=== PATIENT | female | born 1995 | race Caucasian/White ===

== ENCOUNTER → 2016-07-10 | Outpatient (CLI) | payer BC, OTHER ==
--- NOTE | 2016-07-10 10:33 | MM ---
Reason for exam: clinical finding. History: Family history of breast cancer in paternal grandmother. Physical Findings: Nurse Summary: 1cm nodule inthe left breast at 3:30 (nurse sam). MG Diagnostic Mammo w CAD ALIRIO Bilateral CC and MLO view(s) were taken. The breast tissue is extremely dense which could obscure a lesion on mammography. Smoothly marginated mass left breast 3 o'clock. These results were verbally communicated with the patient and result sheet given to the patient on 07/10/16. ASSESSMENT: Incomplete: need additional imaging evaluation, BI-RAD 0 RECOMMENDATION: Ultrasound of the left breast. Manage patient on a clinical basis.
--- NOTE | 2016-07-10 10:35 | USB ---
Reason for exam: additional evaluation requested from abnormal screening. History: Family history of breast cancer in paternal grandmother. US Breast LT Left breast ultrasound including all four quadrants, the retroareolar region and axilla demonstrates a 2.2 x 2.8 x 0.8cm oval, macrolobulated, hypoechoic, vascular lesion at 3 o'clock. Probable fibroadenoma for which a 6 month follow up is recommended. These results were verbally communicated with the patient and result sheet given to the patient on 07/10/16. ASSESSMENT: Probably benign, BI-RAD 3 RECOMMENDATION: Ultrasound of the left breast in 6 months. Manage patient on a clinical basis.
== END | disposition home or self-care (01) ==
LOC: RADMAMWWP 07:51
PROVIDERS: ATTEND Family Medicine
DX: N63 Unspecified lump in breast (principal); R92.8 Other abnormal and inconclusive findings on diagnostic imaging of breast
CPT/HCPCS: 76641; G0204

== ENCOUNTER 2019-06-23 13:30 | Emergency (ER) | payer BC ==
[2019-06-23 14:00] VITALS: RESP 19
--- NOTE | 2019-06-23 14:36 | ED ---
Upper Extremity HPI - General Chief Complaint: Extremity Injury, Upper Stated Complaint: left arm injury Time Seen by Provider: 06/23/19 13:58 Source: patient Mode of arrival: ambulatory Limitations: no limitations - History of Present Illness Initial Comments: 23yo female with no significant PMH presenting to the ER today for cc of left arm painx 1 day. Patient states she tripped falling down approximately 6 steps yesterday. She denies injury to the head, neck, upper back, she states she is slightly sore in the lumbar region muscle but states "she knows nothing is wrong there". Denies loss of bowel bladder control, les weakness, radiation down leg or loss of sensation of LE. Patient denies LOC, blood thinners. States she fell because she tripped and caught her self mostly with her left forearm, she states it is bruised and she has pain with movemetn of the forearm or palpating the are. Patient concerned for possible break in the left forearm and states that is why she presented. Denies abdominal or chest trauma, trauma to the elbow, wrists, hands or shoulder, denies lower extremity pain. No other complaints appears well on arrival no acute distress. States she does not believe she is , - Related Data Allergies Allergy/AdvReac Type Severity Reaction Status Date / Time No Known Allergies Allergy Verified 06/23/19 14:00 Review of Systems ROS Statement: Those systems with pertinent positive or pertinent negative responses have been documented in the HPI. ROS Other: All systems not noted in ROS Statement are negative. Past Medical History Past Medical History: No Reported History History of Any Multi-Drug Resistant Organisms: None Reported Past Surgical History: No Surgical Hx Reported Past Psychological History: No Psychological Hx Reported Smoking Status: Current every day smoker Past Alcohol Use History: None Reported Past Drug Use History: None Reported General Exam - General Exam Comments Initial Comments: General: The patient is awake and alert, in no distress, and does not appear acutely ill. Eye: +3 mm pupils are equal, round and reactive to light, extra-ocular movements are intact. No nystagmus. There is normal conjunctiva bilaterally. No signs of icterus. Ears, nose, mouth and throat: There are moist mucous membranes and no oral lesions. Cardiovascular: There is a regular rate and rhythm. No murmur, rub or gallop is appreciated. Respiratory: Lungs are clear to auscultation, respirations are non-labored, breath sounds are equal. No wheezes, stridor, rales, or rhonchi. Gastrointestinal: Soft, non-distended, non-tender abdomen without masses or organomegaly noted. There is no rebound or guarding present. Musculoskeletal: Normal inspection of the cervical thoracic and lumbar spine. Pain to palpation of the lumbar paravertebral muscles no pain to palpation of the cervical thoracic of lumbar spine midline. Normal ROM at the wrist and elbow, pronation/supination but patient complaints of pain in mid to proximal forearm with these movement. [id number] linear bruising left forearm, just proximal to midline-ventral aspect. Strength 5/5. Sensation intact. Radial pulses equal bilaterally 2+. Patient able to make the okay fingers crossed thumbs-up and doesn't pose a small digit and thumb no wrist drop. Neurological: A&O x 3. CN II-XII intact grossly, There are no obvious motor or sensory deficits. Coordination appears grossly intact. Speech is normal. Skin: Skin is warm and dry and no rashes or lesions are noted. Psychiatric: Cooperative, appropriate mood & affect, normal judgment. Limitations: no limitations Course Vital Signs 06/23/19 06/23/19 13:57 15:05 Temperature 98.1 F 98.4 F Pulse Rate 74 78 Respiratory 19 19 Rate Blood Pressure 128/58 120/79 O2 Sat by Pulse 98 98 Oximetry Medical Decision Making - Medical Decision Making XR (-). XR personally reviewed. Patient neurovascularly intact appears well small ecchymosis over the forearm. Return premises discussed as well as PCP follow-up patient agreeable to plan discharge with RICE instruction. Discussed case wt Dr. Echavarria. Disposition Clinical Impression: Left arm pain, Traumatic ecchymosis of left upper arm Disposition: HOME SELF-CARE Condition: Good Instructions (If sedation given, give patient instructions): R.I.C.E. Treatment (ED) Additional Instructions: Please use medication as discussed. Please follow-up with family doctor in the next 2 days. Please return to emergency room if the symptoms increase or worsen or for any other concerns. Is patient prescribed a controlled substance at d/c from ED?: No Referrals: Jose A Schuster DO [Primary Care Provider] - 1-2 days Time of Disposition: 15:03
--- NOTE | 2019-06-23 15:00 | XR ---
EXAMINATION TYPE: XR forearm LT DATE OF EXAM: 06/23/2019 COMPARISON: NONE HISTORY: 23-year-old female bruising, fall, mid forearm pain TECHNIQUE: 2 views FINDINGS: No acute fracture. No elbow joint effusion. Wrist and elbow articulations appear grossly in tact. IMPRESSION: No acute osseous abnormality seen.
[2019-06-23 15:10] VITALS: BP 120/79; PULSE 78; TEMP 98.4
== END 2019-06-23 15:11 | disposition home or self-care (01) ==
LOC: EC 13:30 → MERGE 13:30 → EC 15:11
DX: S50.12XA Contusion of left forearm, initial encounter (principal); M54.5 Low back pain; F17.200 Nicotine dependence, unspecified, uncomplicated; W10.9XXA Fall (on) (from) unspecified stairs and steps, initial encounter
CPT/HCPCS: 99283

== ENCOUNTER → 2023-08-28 | Outpatient (CLI) | payer OTHER ==
--- NOTE | 2023-08-28 08:49 | USB ---
Reason for Exam: Clinical finding. Patient History: Menarche at age 12. First Full-Term at age 20. Paternal grandmother had breast cancer. Technique: Method: Whole Breast Handheld. Prior Study Comparison: 07/10/2016 Bilateral Diagnostic Mammogram, [facility]. Findings: The whole breast of both breasts, the axilla of both breasts and the retroareolar of both breasts were scanned. A complete US of all four quadrants of the both breasts, axilla, and retro-areolar region were reviewed. Dense tissues are present throughout. In the left breast, 3:00 position, there is an enlarging circumscribed oval hypoechoic mass currently measuring 3.9 x 2.9 x 1.0 cm. Previously measuring 2.8 x 2.2 x 0.8 cm. The patient reports previous benign biopsy. An enlarging fibroadenoma is suspected. Outside records should be obtained. No other solid or cystic lesion on either side. No axillary lymphadenopathy. Overall Assessment: Suspicious, BI-RAD 4 Management: Surgical Consultation of the left breast. Obtain outside records and previous pathology results. If benign fibroadenoma is demonstrated, and the area symptomatic, excision could be considered Results were given to the patient verbally at the time of exam. Electronically signed and approved by: Memo Kelly M.D. Radiologist
== END | disposition home or self-care (01) ==
LOC: RADMAMWWP 07:47
PROVIDERS: ATTEND Family Medicine
DX: N63.25 Unspecified lump in the left breast, overlapping quadrants (principal); N63.10 Unspecified lump in the right breast, unspecified quadrant; Z80.3 Family history of malignant neoplasm of breast

== ENCOUNTER → 2023-12-05 | Outpatient (CLI) | payer OTHER ==
--- NOTE | 2023-12-05 16:03 | US ---
EXAMINATION TYPE: Transabdominal DATE OF EXAM: 12/05/2023 2:28 PM COMPARISON: NONE CLINICAL INDICATION: Female, 28 years old with history of Z32.01 ENCOUNTER FOR TEST, RESULT POSITIVE; Positive BETA EXAM PERFORMED: Transabdominal (TA) EXAM MEASUREMENTS: GESTATIONAL AGE / DATING Physician Established: Not yet established Dates by LMP: (7 weeks/1 days) EDC: 07/22/2024 Dates by First Scan: No previous this is first scan Dates by Current Scan for (7 weeks/6 days) EDC: 07/17/2024 MATERNAL ANATOMY Uterus: 10.6 x 5.8 x 8.2 cm Right Ovary: 3.0 x 2.7 x 3.5 cm Left Ovary: 2.6 x 1.9 x 2.1 cm Post CDS / Adnexa: wnl Presence of free fluid: No Presence of corpus luteal cyst: Right Ovary= 2.3 x 1.9 x 1.8 cm Presence of subchorionic bleed: Right of gestational sac= 2.2 x 1.1 x 1.4 cm GESTATION / SURVEY CRL: 1.5 cm (7 weeks/6 days) MSD: wnl Yolk Sac (normal less than 6mm): 2mm Heart Rate: 158 bpm Rhythm: Normal IUP: Viable IUP Date of LMP: 10/15/2024 Single, viable IUP, small sub-chorionic bleed IMPRESSION: 1. Single viable intrauterine approximately 7 weeks and 6 days based on crown-rump length. 2. Small subchorionic bleed
== END | disposition home or self-care (01) ==
LOC: RADUSWWP 14:01
PROVIDERS: ATTEND Family Medicine
DX: O20.8 Other hemorrhage in early pregnancy (principal); Z3A.01 Less than 8 weeks gestation of pregnancy; Z32.01 Encounter for pregnancy test, result positive
CPT/HCPCS: 76801

== ENCOUNTER 2024-06-17 16:22 | Outpatient (CLI) | payer OTHER ==
[2024-06-17 18:04] VITALS: BP 118/62; PULSE 82; RESP 16; TEMP 98.5
--- NOTE | 2024-07-11 11:29 | P.MSEPDOC ---
Presenting Problems - Arrival Data Date of Arrival on Unit: 06/17/24 Time of Arrival on Unit: 17:00 Mode of Transport: Ambulatory - Complaint OB-Reason for Admission/Chief Complaint: Other Comment: pressure Medical History - Information : 4 Para: 2 Term: 2 : 0 Abortions: Spontaneous or Elective: 1 Number of Living Children: 2 - Gestational Age Gestational Age by YEN (wks/days): 35 Weeks and 4 Days Review of Systems - Review of Systems Constitutional: No problems Breast: No problems ENT: No problems Cardiovascular: No problems Respiratory: No problems Gastrointestinal: No problems Genitourinary: No problems Musculoskeletal: No problems Neurological: No problems Skin: No problems Vital Signs - Temperature Temperature: 98.5 F Temperature Source: Oral - Pulse Sitting Pulse Rate: 82 - Respirations Respiratory Rate: 16 Oxygen Delivery Method: Room Air - Blood Pressure Right Arm Blood Pressure: 118/62 Blood Pressure Mean: 80 Blood Pressure Source: Automatic Cuff Medical Screen Scoring - Cervical Exam Dilation (cm): 0 Membranes: Intact - Assessment - Baby A Baseline FHR: 125 Heart Rate - NICHD Category: Category I (Normal) Physician Notification - Physician Notified Physician Notified Date: 06/17/24 Physician Notified Time: 18:03 Physician: Mani Rangel Order Received: Yes - Notification Comment Comment: pt to discharge home Maternal Triage Index - Non-Urgent/Priority 4 Non-Urgent Priority 4: Yes Criteria Met for Priority 4: pelvic pressure Disposition - Disposition OB Disposition: Discharge to home, Written follow up instructions reviewed Discharge Date: 06/17/24 Discharge Time: 18:03 I agree with the RN Medical Screening Exam: Yes Physician's MSE Comment: I have neither seen nor examined the patient. Case reviewed; plan agreed upon as documented in EMR&OBIX.: Yes Diagnosis: EXCESSIVE WEIGHT GAIN IN , THIRD TRIMESTER
== END 2024-06-17 17:30 | disposition home or self-care (01) ==
LOC: FBPOP 16:22
PROVIDERS: ATTEND Obstetrics & Gynecology
DX: O26.03 Excessive weight gain in pregnancy, third trimester (principal); O99.333 Smoking (tobacco) complicating pregnancy, third trimester; Z3A.35 35 weeks gestation of pregnancy; F17.210 Nicotine dependence, cigarettes, uncomplicated
CPT/HCPCS: 59025; G0463; 99213